=== PATIENT | female | born 1975 | race Caucasian/White ===

== ENCOUNTER 2020-01-23 18:56 | Emergency (ER) | payer BC ==
[~2020-01-23] VITALS: Ht 177.8 cm; Wt 90.0 kg
--- NOTE | 2020-01-23 19:37 | NUR ---
patient takes ibuprofen no issues or hives
[2020-01-23] MEDS ORDERED: ibuprofen tablet 400 MG TABLET PO ONE (19:40)
--- NOTE | 2020-01-23 19:40 | NUR ---
CSM intact right foot
[2020-01-23] MEDS ORDERED: ONDA4TAB6 PO (19:54)
[2020-01-23] MEDS ORDERED: HYDR-4383 PO (19:54)
[2020-01-23] MEDS ORDERED: ondansetron 4mg rapidly disintigrating tab PO ONE (20:35)
[2020-01-23] MEDS ORDERED: HYDROcodone/acetaminophen 5mg/325mg tablet PO ONE (20:35)
--- NOTE | 2020-01-23 20:36 | NUR ---
pediatric orthodontist paged responded coming up to place splint
--- NOTE | 2020-01-23 20:36 | NUR ---
patient wants the [place] the PA pffered and spoke to him was okayed and order placed
--- NOTE | 2020-01-23 20:47 | NUR ---
orthos tech in room to place spint
--- NOTE | 2020-01-23 21:15 | NUR ---
CSM intact right lower extremity after spint placed.
[2020-01-24 00:18] VITALS: BP 138/86
== END 2020-01-23 21:25 | disposition home or self-care (01) ==
LOC: ER 18:57
DX: S82.831A Other fracture of upper and lower end of right fibula, initial encounter for closed fracture (principal); M25.571 Pain in right ankle and joints of right foot; Z88.6 Allergy status to analgesic agent; Z79.899 Other long term (current) drug therapy; X58.XXXA Exposure to other specified factors, initial encounter; Y93.01 Activity, walking, marching and hiking; Y92.89 Other specified places as the place of occurrence of the external cause; Y99.8 Other external cause status
CPT/HCPCS: 29515; 73610; 99284